=== PATIENT | male | born 1990 ===

== ENCOUNTER 2022-11-07 11:24 | Emergency (ER) | payer SELFPAY ==
[2022-11-07] MEDS ORDERED: Diphtheria,Pertussis(Acell),Tetanus Vaccine 0.5 ML Syringe IM ONE (11:59)
[2022-11-07] MEDS ORDERED: Lidocaine 1% PF 2 ML SDV INJECT ONE (11:59)
== END 2022-11-07 12:40 | disposition home or self-care (01) ==
LOC: MW.ED 11:24
DX: S61.211A Laceration without foreign body of left index finger without damage to nail, initial encounter (principal); Z91.030 Bee allergy status; Z23 Encounter for immunization; W26.0XXA Contact with knife, initial encounter
CPT/HCPCS: 12001; 90471; 90715; 99282-25; J3490